=== PATIENT | male | born 1970 | race Caucasian/White ===

== ENCOUNTER 2017-10-15 21:35 | Emergency (ER) | payer OTHER ==
[2017-10-15] MEDS ORDERED: Dexamethasone 4 MG TAB ONE (22:26)
[2017-10-15] MEDS ORDERED: Cephalexin 500 MG CAP ONE (22:26)
== END 2017-10-15 22:37 | disposition home or self-care (01) ==
LOC: MADERS 21:35
DX: L25.9 Unspecified contact dermatitis, unspecified cause (principal); L03.113 Cellulitis of right upper limb; F17.220 Nicotine dependence, chewing tobacco, uncomplicated
CPT/HCPCS: 99282; J8540

== ENCOUNTER 2019-03-20 08:52 | Emergency (ER) | payer OTHER ==
[2019-03-20] MEDS ORDERED: predniSONE 20 MG TAB ONE (10:02)
== END 2019-03-20 10:02 | disposition home or self-care (01) ==
LOC: MADERS 08:52
DX: L23.7 Allergic contact dermatitis due to plants, except food (principal); F17.210 Nicotine dependence, cigarettes, uncomplicated
CPT/HCPCS: 99282; J7512